=== PATIENT | female | born 1955 | race Caucasian/White ===

== ENCOUNTER 2016-12-16 21:10 | Observation (INO) | payer MEDICAID ==
[2016-12-16] MEDS ORDERED: HYDROmorphone 0.5 MG/0.5 ML Syringe IVPUSH ONE (21:39)
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
[2016-12-16] MEDS ORDERED: Sodium Chloride 0.9% 50 ML ONE (21:54)
[2016-12-16] MEDS: ceFAZolin 1 GM in Premix Bag 1 BAG IV ONE (22:03)
[2016-12-16] MEDS: ceFAZolin 1 GM Vial ONE (22:03)
[2016-12-16] MEDS ORDERED: Albuterol/Ipratropium 3.0-0.5 MG/3 ML Neb Soln NEB ONE (22:07)
[2016-12-16] MEDS ORDERED: Budesonide 0.25 MG/2 ML Neb Susp NEB ONE (22:08)
[2016-12-16] MEDS ORDERED: Naloxone 0.4 MG/ML SDV IVPUSH PRN (22:32)
[2016-12-16] MEDS ORDERED: HYDROmorphone/Normal Saline 15 MG/30 ML PCA IV PRN (22:32)
[2016-12-16] MEDS ORDERED: Albuterol/Ipratropium 3.0-0.5 MG/3 ML Neb Soln NEB PRN (22:33)
[2016-12-16] MEDS ORDERED: Diphtheria,Pertussis(Acell),Tetanus Vaccine 0.5 ML SDV IM ONE (22:38)
[2016-12-16] MEDS: Dextrose 5%-Lactated Ringers 1,000 ML IV SCH (23:47)
[2016-12-17] MEDS: ceFAZolin 1 GM in Premix Bag 1 BAG IV ONE (00:39)
[2016-12-17] MEDS: Dextrose 5%-Lactated Ringers 1,000 ML IV SCH (06:35)
[2016-12-17] MEDS ORDERED: Lidocaine 1% with EPINEPHrine 1:100,000 50 ML MDV ONE (07:09)
[2016-12-17] MEDS ORDERED: Bupivacaine 0.5% 50 ML MDV ONE (07:09)
[2016-12-17] MEDS ORDERED: Lidocaine 1% 50 ML MDV ONE (07:13)
[2016-12-17] MEDS ORDERED: Naloxone 0.4 MG/ML SDV IV PRN (07:17)
[2016-12-17] MEDS ORDERED: Albuterol/Ipratropium 3.0-0.5 MG/3 ML Neb Soln INH ONE (07:30)
[2016-12-17] MEDS ORDERED: Propofol 200 MG/20 ML SDV ONE (07:42)
[2016-12-17] MEDS ORDERED: fentaNYL 100 MCG/2 ML SDV ONE (07:43)
[2016-12-17] MEDS ORDERED: Midazolam 1 MG/ML 2 ML SDV ONE (07:43)
[2016-12-17] MEDS ORDERED: ceFAZolin 2 GM in Premix Bag 1 BAG IV ONE (08:00)
[2016-12-17] MEDS ORDERED: Linezolid 200 MG/100 ML Bag IRR ONE (08:05)
[2016-12-17] MEDS ORDERED: Acetaminophen/oxyCODONE 325-5 MG Tab PO PRN (09:38)
[2016-12-17 10:23] VITALS: BP 153/74
[2016-12-18] MEDS: ceFAZolin 1 GM Vial ONE (12:01)
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
== END 2016-12-17 11:00 | disposition home or self-care (01) ==
LOC: JP.ED 21:10 → JP.2SS 22:15
PROVIDERS: ADMIT Surgery; ATTEND Surgery
DX: S81.812A Laceration without foreign body, left lower leg, initial encounter (principal); J43.1 Panlobular emphysema; I10 Essential (primary) hypertension; W01.198A Fall on same level from slipping, tripping and stumbling with subsequent striking against other object, initial encounter; Y93.9 Activity, unspecified
CPT/HCPCS: 13121; 13122; 90471; 90715; 94640; 94762; 96365; 96375; 99284; A9270; J0690; J1170; J2020; J2250; J2704; J3010; J7040; J7042; J7050; J7620; 96361; 96366; G0378; J7634